=== PATIENT | female | born 1985 | race Caucasian/White ===

== ENCOUNTER 2017-03-09 17:44 | Emergency (ER) | payer OTHER, MEDICAID ==
--- NOTE | 2017-03-09 18:43 | Emergency Department Record ---
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 She has a history of alcohol abuse and similar actions in the past going back many years. She has been mostly sober for several months with a few set backs of drinking. She states stress tonight at home prompted her to drink. She states she currently feels asymptomatic. She denies any thoughts of hurting herself. She denies that this was a suicidal gesture. 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 Time Since Last Drink: 30 -: Minute(s) Treatments Prior to Arrival: None - Greg Coma Scale Eye Response: (4) Open spontaneously Motor Response: (6) Obeys commands Verbal Response: (5) Oriented Greg Total: 15 - Related Data Home Medications Medication Instructions Recorded Confirmed Last Taken Venlafaxine HCl [Effexor Xr] 150 mg PO DAILY 07/09/16 03/09/17 07/09/16 Clonidine HCl [Clonidine HCl] 0.2 mg PO BID 10/10/16 03/09/17 Unknown Clonidine HCl [Clonidine HCl] 0.3 mg PO QHS 10/10/16 03/09/17 Unknown Diphenhydramine HCl [Benadryl] 50 mg PO QHS 10/10/16 03/09/17 Unknown Buspirone HCl [Buspirone HCl] 15 mg PO BID 03/09/17 03/09/17 Unknown Disulfiram [Disulfiram] 250 mg PO DAILY 03/09/17 03/09/17 Unknown Lamotrigine [Lamotrigine] 100 mg PO TID 03/09/17 03/09/17 Unknown Lorazepam [Lorazepam] 1 mg PO BID 03/09/17 03/09/17 Unknown Ondansetron [Ondansetron Odt] 4 mg PO ASDIR PRN 03/09/17 03/09/17 Unknown Trazodone HCl 150 mg PO DAILY 03/09/17 03/09/17 Unknown Allergies Allergy/AdvReac Type Severity Reaction Status Date / Time dicyclomine HCl [From Bentyl] Allergy HIVES Verified 08/21/16 17:19 Travel Screening - Travel/Exposure Within Last 30 Days Have you traveled within the last 30 days?: No Review of Systems Constitutional: Denies: Chills, Fever, Malaise, Weakness Eyes: Denies: Eye discharge ENT: Denies: Congestion Respiratory: Denies: Cough, Dyspnea, Hemoptysis, Stridor, Wheezes Cardiovascular: Denies: Chest pain, Palpitations, Syncope Endocrine: Denies: Fatigue Gastrointestinal: Denies: Abdominal pain, Diarrhea, Nausea, Vomiting Genitourinary: Denies: Dysuria, Frequency Musculoskeletal: Denies: Arthralgia, Back pain, Myalgia, Neck pain Skin: Denies: Bruising, Change in color, Rash Neurological: Denies: Confusion, Headache, Numbness Psychiatric: Denies: Anxiety Hematological/Lymphatic: Denies: Blood Clots, Easy bleeding, Easy bruising, Swollen glands Past Medical History - SOCIAL HISTORY Smoking Status: Current some day smoker Alcohol Use Comment: hand malted milk mixer - RESPIRATORY Hx Respiratory Disorders: Yes Hx Asthma: Yes - CARDIOVASCULAR Hx Cardio Disorders: No - NEURO Hx Neuro Disorders: No Hx Headaches: Yes (migraines) Hx Seizures: Yes - GI Hx GI Disorders: Yes Hx Reflux: Yes - Hx Genitourinary Disorders: No - ENDOCRINE Hx Endocrine Disorders: No Hx Diabetes: No Hx Thyroid Disease: No - MUSCULOSKELETAL Hx Musculoskeletal Disorders: No - PSYCH Hx Psych Problems: Yes Hx Suicide Attempt: Yes - HEMATOLOGY/ONCOLOGY Hx Hematology/Oncology Disorders: No Family Medical History Any Significant Family History?: Yes Hx HTN: Grandparents Physical Exam - General General Appearance: Alert, Oriented x3, Cooperative, No acute distress Limitations: No limitations - Head Head exam: Atraumatic, Normocephalic, Normal inspection - Eye Eye exam: Normal appearance, PERRL. negative: Conjunctival injection, Scleral icterus - ENT ENT exam: Normal exam, Mucous membranes moist Ear exam: Normal external inspection Nasal Exam: Normal inspection Mouth exam: Normal external inspection Teeth exam: Normal inspection Throat exam: Normal inspection - Neck Neck exam: Normal inspection, Full ROM. negative: Tenderness - Respiratory Respiratory exam: Normal lung sounds bilaterally. negative: Respiratory distress - Cardiovascular Cardiovascular Exam: Regular rate, Normal rhythm, Normal heart sounds - GI/Abdominal GI/Abdominal exam: Soft, Normal bowel sounds. negative: Tenderness - Rectal Rectal exam: Deferred - exam: Deferred - Extremities Extremities exam: Normal inspection, Full ROM, Normal capillary refill. negative: Tenderness - Back Back exam: Reports: Normal inspection, Full ROM. Denies: Muscle spasm, Rash noted, Tenderness - Neurological Neurological exam: Alert, CN II-XII intact, Normal gait, Oriented X3, Reflexes normal. negative: Altered - Psychiatric Psychiatric exam: Normal affect, Normal mood. negative: Agitated, Anxious, Depressed, Flat affect, Homicidal ideation, Suicidal ideation - Skin Skin exam: Dry, Intact, Normal color, Warm Course Vital Signs 03/09/17 17:56 Temperature 98.0 F Pulse Rate 108 H Respiratory 18 Rate Blood Pressure 108/83 Pulse Ox 95 - Reevaluation(s) Reevaluation #1: The patient was seen and examined She is calm and cooperative She does not overtly appear intoxicated She regrets her actions and states it was not an attempt to harm herself 03/09/17 18:40 Reevaluation #2: The labs were reviewed Alcohol was 0.248 Acetaminophen is negative Salicylate is negative AST 197, ALT 167, Alk Phos 147 AG normal at 12 HCO3 normal at 28 CBC no acute changes 03/09/17 19:37 03/09/17 19:39 Reevaluation #3: The patient remains alert, no overt signs of impairment. Her speech and thoughts are clear She maintains she is not suicidal Her sister in law Roxann Campbell is here and agrees she is not suicidal She is also aware of her history and takes responsibility for her and will be with her tonight The patient was again instructed not to drink alcohol or abuse other alcohols. She is to recheck her liver enzymes Sunday03/09/17 19:59 - Consultations Consultation #1: MDM The patient does not clinically appear impaired. She is rational, no confusion, very consistent and straight forward answers. She is not suicidal. She is fully aware of her alcohol abuse and is regretful. She has a sister in law with her tonight Roxann Campbell that agrees to take her and be responsible for her tonight. Linda will stay with her and Roxann is fully aware of her abuse history and ensures there is no alcohol or hand malted milk mixer available. She was instructed to avoid the alcohol and to have her labs rechecked in 2-3 days. Medical Decision Making - Lab Data Result diagrams: 03/09/17 19:10 03/09/17 19:10 Disposition Disposition: Discharge Clinical Impression: Alcohol abuse Disposition: Home, Self-Care Condition: (1) Good Instructions: Abuse of Alcohol (ED) Additional Instructions: Avoid alcohol Return if you have any symptoms or concerns You will need to return or see your doctor in 2-3 days to have your liver enzymes rechecked Forms: Patient Portal Access Time of Disposition: 20:02
[2017-03-09 19:19] LABS: BASO % 0.5 % (0-6); EOS % 0.5 % (0-6); GRAN % 67.1 % (47-80); HEMATOCRIT 41.2 % (35.0-47.0); MEAN CELL VOLUME 94.1 fl (81-97); MEAN CORPUSCULAR HEMOGLOBIN 29.7 pg (27-33); MEAN CORPUSCULAR HGB CONC 31.6 g/dl (32-36); MEAN PLATELET VOLUME 8.8 fl (7.4-10.4); MONO % 4.9 % (0-9); PLATELET COUNT 233 K/uL (130-400); RED BLOOD COUNT 4.38 M/uL (3.80-5.40); RED CELL DISTRIBUTION WIDTH 15.3 % (11.5-14.5); WHITE BLOOD COUNT W/O DIFF 5.7 K/uL (4.2-12.2)
[2017-03-09 19:21] LABS: URINE APPEARANCE CLEAR; URINE BILIRUBIN NEGATIVE (NEGATIVE); URINE BLOOD NEGATIVE (NEGATIVE); URINE COLOR YELLOW; URINE GLUCOSE (UA) NEGATIVE (NEGATIVE); URINE KETONE NEGATIVE (NEGATIVE); URINE LEUKOCYTE ESTERASE NEGATIVE (NEGATIVE); URINE NITRITE NEGATIVE (NEGATIVE); URINE PROTEIN NEGATIVE (NEGATIVE); URINE UROBILINOGEN 0.2 E.U./dL (0.20 - 1.00)
[2017-03-09 19:23] LABS: HCG,QUALITATIVE URINE NEGATIVE (NEGATIVE)
[2017-03-09 19:24] LABS: AMPHETAMINE SCREEN URINE NOT DETECTED; BARBITURATE SCREEN URINE NOT DETECTED; BENZODIAZEPINE SCREEN URINE NOT DETECTED; COCAINE SCREEN URINE NOT DETECTED; METHADONE SCREEN URINE NOT DETECTED; METHAMPHETAMINE SCREEN NOT DETECTED; OPIATE SCREEN URINE NOT DETECTED; OXYCODONE SCREEN URINE NOT DETECTED; PHENCYCLIDINE SCREEN URINE NOT DETECTED; PROPOXYPHENE SCREEN URINE NOT DETECTED; THC SCREEN URINE NOT DETECTED; TRICYCLIC ANTIDEPRESSANT SCRN NOT DETECTED
[2017-03-09 19:31] LABS: ACETAMINOPHEN < 10.0 ug/mL (10.0-30.0); ALB/GLOB RATIO 1.6 (1.1-1.8); ALBUMIN 5.2 gm/dL (3.5-5.0); ALCOHOL 0.248 g/dL (0-0.010); ALKALINE PHOSPHATASE 147 U/L (38-126); ALT/SGPT 167 U/L (9-52); ANION GAP 12.5 (7-16); AST/SGOT 198 U/L (14-36); BILIRUBIN,TOTAL 0.25 mg/dL (0.2-1.3); BLOOD UREA NITROGEN 8 mg/dL (7-17); CARBON DIOXIDE 28.5 mmol/L (22-30); CREATININE 0.5 mg/dL (0.52-1.04); EST GLOMERULAR FILTRATION RATE > 60 ml/min; GLUCOSE,RANDOM 74 mg/dL (70-110); SALICYLATE < 1.0 mg/dL (2.8-20.0); TOTAL PROTEIN 8.4 gm/dL (6.3-8.2)
== END 2017-03-09 20:13 | disposition home or self-care (01) ==
LOC: ER 17:44
DX: F10.20 Alcohol dependence, uncomplicated (principal); T51.0X4A Toxic effect of ethanol, undetermined, initial encounter; R74.8 Abnormal levels of other serum enzymes; Y90.8 Blood alcohol level of 240 mg/100 ml or more
CPT/HCPCS: 99283; 99284; 85025; 80053; 81003; 81025; 80305; G0480 ×3; 80320; 80329

== ENCOUNTER 2017-03-10 05:26 | Emergency (ER) | payer OTHER, MEDICAID ==
[2017-03-10] MEDS ORDERED: 0.9 % SODIUM CHLORIDE 1,000 ML BAG IV ONE (05:43)
--- NOTE | 2017-03-10 05:43 | Emergency Department Record ---
History of Present Illness - General Chief Complaint: Laceration(s) Stated Complaint: NEEDS STICHES Time Seen by Provider: 03/10/17 05:32 Source: Patient, Family Mode of Arrival: Ambulatory Limitations: Altered mental status - History of Present Illness Initial Commments: 31 yo female presents after falling and hitting her head. The patient presents with her brother. 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 The brother states that when she returned from the ER last night she was in her usual state and not altered or impaired. After discussion they elected to take her to her house as opposed to the agreed plan of staying at her brothers. No alcohol or hand slubber machine operator was found so she was left in her home. Linda admits to drinking hand slubber machine operator. She lost her balance and hit her head. Linda also states she took her sleeping pills as well. She admits to taking her Trazedone. The brother is fully aware of her history of abuse of alcohol and hand slubber machine operator on an intermittent bases. He states when sober she is not suicidal. -: Hour(s) Location: Scalp Place: Home Context: Accidental Associated Symptoms: Other (Alcohol abuse) - [place] Coma Scale Eye Response: (4) Open spontaneously Motor Response: (6) Obeys commands Verbal Response: (5) Oriented Greg Total: 15 - Related Data Home Medications Medication Instructions Recorded Confirmed Last Taken Venlafaxine HCl [Effexor Xr] 150 mg PO DAILY 07/09/16 03/10/17 07/09/16 Clonidine HCl [Clonidine HCl] 0.2 mg PO BID 10/10/16 03/10/17 Unknown Clonidine HCl [Clonidine HCl] 0.3 mg PO QHS 10/10/16 03/10/17 Unknown Diphenhydramine HCl [Benadryl] 50 mg PO QHS 10/10/16 03/10/17 Unknown Buspirone HCl [Buspirone HCl] 15 mg PO BID 03/09/17 03/10/17 Unknown Disulfiram [Disulfiram] 250 mg PO DAILY 03/09/17 03/10/17 Unknown Lamotrigine [Lamotrigine] 100 mg PO TID 03/09/17 03/10/17 Unknown Lorazepam [Lorazepam] 1 mg PO BID 03/09/17 03/10/17 Unknown Ondansetron [Ondansetron Odt] 4 mg PO ASDIR PRN 03/09/17 03/10/17 Unknown Trazodone HCl 150 mg PO DAILY 03/09/17 03/10/17 Unknown Allergies Allergy/AdvReac Type Severity Reaction Status Date / Time dicyclomine HCl [From Bentyl] Allergy HIVES Verified 03/10/17 05:28 Review of Systems Constitutional: Reports: Malaise. Denies: Chills, Fever, Weakness Eyes: Denies: Eye discharge, Eye pain, Photophobia ENT: Denies: Congestion, Throat pain Respiratory: Denies: Cough, Dyspnea, Hemoptysis, Stridor, Wheezes Cardiovascular: Denies: Chest pain, Palpitations, Syncope Endocrine: Denies: Fatigue Gastrointestinal: Denies: Abdominal pain, Diarrhea, Nausea, Vomiting Genitourinary: Denies: Dysuria Musculoskeletal: Denies: Arthralgia, Back pain, Myalgia, Neck pain Skin: Reports: Other (laceration). 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 Hx Respiratory Disorders: Yes Hx Asthma: Yes - CARDIOVASCULAR Hx Cardio Disorders: No - NEURO Hx Neuro Disorders: No Hx Headaches: Yes (migraines) Hx Seizures: Yes - GI Hx GI Disorders: Yes Hx Reflux: Yes - Hx Genitourinary Disorders: No - ENDOCRINE Hx Endocrine Disorders: No Hx Diabetes: No Hx Thyroid Disease: No - MUSCULOSKELETAL Hx Musculoskeletal Disorders: No - PSYCH Hx Psych Problems: Yes Hx Suicide Attempt: Yes - HEMATOLOGY/ONCOLOGY Hx Hematology/Oncology Disorders: No Family Medical History Hx HTN: Grandparents Physical Exam - General General Appearance: Alert, Cooperative, No acute distress, Other (she is aware of her name, brother, hospital, surroundings, situation) Limitations: No limitations, Altered mental status - Head Head exam: negative: Atraumatic, Normal inspection Head exam detail: Laceration Image of Face/Head: 1 - 4cm liniear laceration, no bruising - Eye Eye exam: Normal appearance, PERRL. negative: Scleral icterus - ENT ENT exam: Normal exam, Mucous membranes moist Ear exam: Normal external inspection Nasal Exam: Normal inspection Mouth exam: Normal external inspection Teeth exam: Normal inspection Throat exam: Normal inspection - Neck Neck exam: Normal inspection, Full ROM. negative: Tenderness - Respiratory Respiratory exam: Normal lung sounds bilaterally. negative: Respiratory distress, Rhonchi, Stridor, Wheezes - Cardiovascular Cardiovascular Exam: Regular rate, Normal rhythm, Normal heart sounds - GI/Abdominal GI/Abdominal exam: Soft. negative: Tenderness - Rectal Rectal exam: Deferred - exam: Deferred - Extremities Extremities exam: Normal inspection, Full ROM, Normal capillary refill. negative: Tenderness - Back Back exam: Reports: Normal inspection, Full ROM. Denies: CVA tenderness (R), CVA tenderness (L), Muscle spasm, Paraspinal tenderness, Rash noted, Tenderness , Vertebral tenderness - Neurological Neurological exam: Alert, Altered. negative: Abnormal gait (ambulates with slight stagger), Motor sensory deficit - Psychiatric Psychiatric exam: Other (alert, calm,). negative: Agitated, Anxious, Normal affect, Normal mood - Skin Type of lesion: negative: Laceration Course - Reevaluation(s) Reevaluation #1: The patient is cooperative but sleepy She wakes up and answers questions correctly 03/10/17 06:35 Reevaluation #2: alcohol is 0.286 03/10/17 06:45 Reevaluation #3: CT of the head is negative for acute process except soft tissue swelling CT of the cervical spine is negative for acute process, older unhealed C7 transverse process fx (not new or acute). Suggestion of edema of the back (the back is visually normal). The case was signed out to Dr Feldman for further monitoring and re-evaluations. 03/10/17 07:11 - Consultations Consultation #1: Procedure: Scalp Laceration 4cm TLE placed followed by Lidocaine 1% with epi 4ml The skin was prepped with betadine The wound was copiously irrigated with NS Staple were used to close the wound with good wound approximation. Medical Decision Making - Lab Data Result diagrams: 03/10/17 05:55 03/10/17 05:55 Disposition Clinical Impression: Alcohol abuse Alcohol intoxication Qualifiers: Complication of substance-induced condition: uncomplicated Qualified Code(s): F10.120 - Alcohol abuse with intoxication, uncomplicated Scalp laceration Qualifiers: Encounter type: initial encounter Qualified Code(s): S01.01XA - Laceration without foreign body of scalp, initial encounter Forms: Patient Portal Access
[2017-03-10 06:07] LABS: EOS % 0.6 % (0-6); GRAN % 53.6 % (47-80); HEMATOCRIT 34.6 % (35.0-47.0); LYMPH % 34.4 % (16-45); MEAN CELL VOLUME 94.5 fl (81-97); MEAN CORPUSCULAR HGB CONC 31.8 g/dl (32-36); MONO % 10.4 % (0-9); PLATELET COUNT 240 K/uL (130-400); RED BLOOD COUNT 3.66 M/uL (3.80-5.40); RED CELL DISTRIBUTION WIDTH 15.7 % (11.5-14.5); WHITE BLOOD COUNT W/O DIFF 4.9 K/uL (4.2-12.2)
[2017-03-10 06:17] LABS: ANION GAP 11.1 (7-16); BLOOD UREA NITROGEN 9 mg/dL (7-17); CARBON DIOXIDE 26.9 mmol/L (22-30); CREATININE 0.5 mg/dL (0.52-1.04); EST GLOMERULAR FILTRATION RATE > 60 ml/min; GLUCOSE,RANDOM 99 mg/dL (70-110)
[2017-03-10 06:34] LABS: ACETAMINOPHEN < 10.0 ug/mL (10.0-30.0)
[2017-03-10] MEDS ORDERED: MVI, ADULT NO.4 WITH VIT K 10 ML, THIAMINE HCL IV 100 MG in 0.9 % SODIUM CHLORIDE 1000M... IV SCH ×3 (06:45)
[2017-03-10 06:47] LABS: ALCOHOL 0.286 g/dL (0-0.010)
[2017-03-10] MEDS ORDERED: MVI, ADULT NO.4 WITH VIT K 10 ML, THIAMINE HCL IV 100 MG in 0.9 % SODIUM CHLORIDE 1000M... IV STA ×3 (06:48)
--- NOTE | 2017-03-10 09:32 | Emergency Department Record ---
History of Present Illness - General Chief Complaint: Laceration(s) Stated Complaint: NEEDS STICHES Time Seen by Provider: 03/10/17 05:32 Source: Patient, Family Mode of Arrival: Ambulatory Limitations: No limitations, Altered mental status - History of Present Illness Onset/Timin -: Hour(s) Location: Scalp Place: Home Context: Accidental Associated Symptoms: Other (Alcohol abuse) - Greg Coma Scale Eye Response: (4) Open spontaneously Motor Response: (6) Obeys commands Verbal Response: (5) Oriented Greg Total: 15 - Related Data Patient Tetanus UTD (within 5 yrs): Yes Home Medications Medication Instructions Recorded Confirmed Last Taken Venlafaxine HCl [Effexor Xr] 150 mg PO DAILY 07/09/16 03/10/17 07/09/16 Clonidine HCl [Clonidine HCl] 0.2 mg PO BID 10/10/16 03/10/17 Unknown Clonidine HCl [Clonidine HCl] 0.3 mg PO QHS 10/10/16 03/10/17 Unknown Diphenhydramine HCl [Benadryl] 50 mg PO QHS 10/10/16 03/10/17 Unknown Buspirone HCl [Buspirone HCl] 15 mg PO BID 03/09/17 03/10/17 Unknown Disulfiram [Disulfiram] 250 mg PO DAILY 03/09/17 03/10/17 Unknown Lamotrigine [Lamotrigine] 100 mg PO TID 03/09/17 03/10/17 Unknown Lorazepam [Lorazepam] 1 mg PO BID 03/09/17 03/10/17 Unknown Ondansetron [Ondansetron Odt] 4 mg PO ASDIR PRN 03/09/17 03/10/17 Unknown Trazodone HCl 150 mg PO DAILY 03/09/17 03/10/17 Unknown Allergies Allergy/AdvReac Type Severity Reaction Status Date / Time dicyclomine HCl [From Bentyl] Allergy HIVES Verified 03/10/17 05:28 Travel Screening - Travel/Exposure Within Last 30 Days Have you traveled within the last 30 days?: No - Travel Symptoms Symptom Screening: None Review of Systems Constitutional: Reports: Malaise. Denies: Chills, Fever, Weakness Eyes: Denies: Eye discharge, Eye pain, Photophobia ENT: Denies: Congestion, Throat pain Respiratory: Denies: Cough, Dyspnea, Hemoptysis, Stridor, Wheezes Cardiovascular: Denies: Chest pain, Palpitations, Syncope Endocrine: Denies: Fatigue Gastrointestinal: Denies: Abdominal pain, Diarrhea, Nausea, Vomiting Genitourinary: Denies: Dysuria Musculoskeletal: Denies: Arthralgia, Back pain, Myalgia, Neck pain Skin: Reports: Other (laceration). 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 Hx Respiratory Disorders: Yes Hx Asthma: Yes - CARDIOVASCULAR Hx Cardio Disorders: No - NEURO Hx Neuro Disorders: No Hx Headaches: Yes (migraines) Hx Seizures: Yes - GI Hx GI Disorders: Yes Hx Reflux: Yes - Hx Genitourinary Disorders: No - ENDOCRINE Hx Endocrine Disorders: No Hx Diabetes: No Hx Thyroid Disease: No - MUSCULOSKELETAL Hx Musculoskeletal Disorders: No - PSYCH Hx Psych Problems: Yes Hx Suicide Attempt: Yes - HEMATOLOGY/ONCOLOGY Hx Hematology/Oncology Disorders: No Family Medical History Hx HTN: Grandparents Physical Exam - General Limitations: No limitations, Altered mental status Course Vital Signs 03/10/17 03/10/17 03/10/17 05:35 06:45 06:55 Temperature 98.6 F Pulse Rate 108 H Pulse Rate [ 90 90 Historian Dramatic Arts ] Respiratory 16 16 14 Rate Blood Pressure 102/65 Blood Pressure 87/50 [Right Arm] Pulse Ox 95 80 L 99 03/10/17 03/10/17 03/10/17 07:26 08:32 09:16 Temperature Pulse Rate Pulse Rate [ 88 93 H 97 H Historian Dramatic Arts ] Respiratory 16 14 18 Rate Blood Pressure Blood Pressure 87/50 88/53 89/52 [Right Arm] Pulse Ox 99 98 99 - Reevaluation(s) Reevaluation #1: The patient is doing very well at this time. Her care was assumed from Dr. Bernal. Presently the patient is awake and alert. She denies any MARISCAL, neck pain or visual changes. On exam she has no cervical tenderness, and no pain with ROM. We will recheck and alcohol level and observe the patient further. 03/10/17 09:30 Reevaluation #2: The patient is doing very well at this time. She is awake and alert and is ambulating normally with no ataxia or slurred speech. She denies any suicidal ideation and regrets getting intoxicated last night. Her gait is normal and she feels ready for home. The patient's BP is normal with no tachycardia and she is instructed to decrease her ETOH intake and see her PCP and Psychiatrist next week. 03/10/17 10:21 Medical Decision Making - Lab Data Result diagrams: 03/10/17 05:55 03/10/17 05:55 Lab Results 03/10/17 03/10/17 03/10/17 Range/Units 05:55 05:55 05:55 WBC 4.9 (4.2-12.2) K/uL RBC 3.66 L (3.80-5.40) M/uL Hgb 11.0 L (11.6-16.0) gm/dl Hct 34.6 L (35.0-47.0) % MCV 94.5 (81-97) fl MCH 30.0 (27-33) pg MCHC 31.8 L (32-36) g/dl RDW 15.7 H (11.5-14.5) % Plt Count 240 (130-400) K/uL MPV 9.0 (7.4-10.4) fl Gran % 53.6 (47-80) % Lymphocytes % 34.4 (16-45) % Monocytes % 10.4 H (0-9) % Eosinophils % 0.6 (0-6) % Basophils % 1.0 (0-6) % Sodium 144 (136-145) mmol/L Potassium 4.3 (3.5-5.1) mmol/L Chloride 106 (98-107) mmol/L Carbon Dioxide 26.9 (22-30) mmol/L Anion Gap 11.1 (7-16) BUN 9 (7-17) mg/dL Creatinine 0.5 L (0.52-1.04) mg/dL Estimated GFR > 60 ml/min Random Glucose 99 (70-110) mg/dL Calcium 8.4 L (8.5-10.1) mg/dL Salicylates < 1.0 L (2.8-20.0) mg/dL Acetaminophen < 10.0 L (10.0-30.0) ug/mL Ethyl Alcohol 0.286 H (0-0.010) g/dL Disposition Clinical Impression: Alcohol abuse Alcohol intoxication Qualifiers: Complication of substance-induced condition: uncomplicated Qualified Code(s): F10.120 - Alcohol abuse with intoxication, uncomplicated Scalp laceration Qualifiers: Encounter type: initial encounter Qualified Code(s): S01.01XA - Laceration without foreign body of scalp, initial encounter Disposition: Home, Self-Care Condition: (2) Stable Instructions: Laceration (ED) Additional Instructions: Please decrease your alcohol intake and please see your PCP next week for recheck and to have your liver enzymes rechecked. Please have your linette removed in 10 days. Return to the ER for any problems or new issues. Forms: Patient Portal Access Time of Disposition: 10:24
[2017-03-10 09:58] LABS: AMPHETAMINE SCREEN URINE NOT DETECTED; BARBITURATE SCREEN URINE NOT DETECTED; BENZODIAZEPINE SCREEN URINE DETECTED; COCAINE SCREEN URINE NOT DETECTED; METHADONE SCREEN URINE NOT DETECTED; METHAMPHETAMINE SCREEN NOT DETECTED; OPIATE SCREEN URINE NOT DETECTED; OXYCODONE SCREEN URINE NOT DETECTED; PHENCYCLIDINE SCREEN URINE NOT DETECTED; PROPOXYPHENE SCREEN URINE NOT DETECTED; THC SCREEN URINE DETECTED; TRICYCLIC ANTIDEPRESSANT SCRN NOT DETECTED
== END 2017-03-10 11:02 | disposition home or self-care (01) ==
LOC: ER 05:26
DX: S19.9XXA Unspecified injury of neck, initial encounter (principal); S01.01XA Laceration without foreign body of scalp, initial encounter; F10.120 Alcohol abuse with intoxication, uncomplicated; T51.0X4A Toxic effect of ethanol, undetermined, initial encounter; W19.XXXA Unspecified fall, initial encounter; Y92.009 Unspecified place in unspecified non-institutional (private) residence as the place of occurrence of the external cause; Y90.8 Blood alcohol level of 240 mg/100 ml or more; Z79.899 Other long term (current) drug therapy
CPT/HCPCS: 12002 ×2; 99284 ×2; 96365; 96366; 96361; 85025; 80048; 80305; 72125; 70450; G0480 ×3; 80320; 80329; J3411; J7030

== ENCOUNTER 2017-03-29 16:36 | Emergency (ER) | payer OTHER, MEDICAID ==
[2017-03-29] MEDS ORDERED: 0.9 % SODIUM CHLORIDE 1,000 ML BAG IV ONE (17:08)
[2017-03-29 17:21] LABS: BASO % 0.3 % (0-6); EOS % 0.3 % (0-6); GRAN % 69.2 % (47-80); LYMPH % 23.3 % (16-45); MEAN CELL VOLUME 90.9 fl (81-97); MEAN CORPUSCULAR HEMOGLOBIN 28.8 pg (27-33); MEAN CORPUSCULAR HGB CONC 31.7 g/dl (32-36); MEAN PLATELET VOLUME 11.1 fl (7.4-10.4); MONO % 6.9 % (0-9); PLATELET COUNT 101 K/uL (130-400); RED BLOOD COUNT 4.51 M/uL (3.80-5.40); RED CELL DISTRIBUTION WIDTH 15.3 % (11.5-14.5); WHITE BLOOD COUNT W/O DIFF 10.6 K/uL (4.2-12.2)
--- NOTE | 2017-03-29 17:22 | Emergency Department Record ---
History of Present Illness - General Chief Complaint: Alcohol Intoxication Stated Complaint: INTOXICATED Time Seen by Provider: 03/29/17 17:08 Source: Police Mode of Arrival: EMS Limitations: No limitations - History of Present Illness Initial Comments: The patient was brought to the ER by EMS and Police due to being found outside very intoxicated and being combative at home. Per the police the patient was threatening her mother and was saying she was going to kill her by shooting her. The patient denies making those statements. She also denies any pain or any injuries. MD Complaint: Alcohol intoxication Last Drink: Unknown Chronic Alcohol Use: Yes Previous Visits for Alcohol Intoxication?: Yes Recent Trauma: No Associated Symptoms: Denies other symptoms Treatments Prior to Arrival: None - [place] Coma Scale Eye Response: (4) Open spontaneously Motor Response: (6) Obeys commands Verbal Response: (5) Oriented [place] Total: 15 - Related Data Home Medications Medication Instructions Recorded Confirmed Last Taken Venlafaxine HCl [Effexor Xr] 150 mg PO DAILY 07/09/16 03/29/17 07/09/16 Clonidine HCl [Clonidine HCl] 0.2 mg PO BID 10/10/16 03/29/17 Unknown Clonidine HCl [Clonidine HCl] 0.3 mg PO QHS 10/10/16 03/29/17 Unknown Diphenhydramine HCl [Benadryl] 50 mg PO QHS 10/10/16 03/29/17 Unknown Buspirone HCl [Buspirone HCl] 15 mg PO BID 03/09/17 03/29/17 Unknown Disulfiram [Disulfiram] 250 mg PO DAILY 03/09/17 03/29/17 Unknown Lamotrigine [Lamotrigine] 100 mg PO TID 03/09/17 03/29/17 Unknown Lorazepam [Lorazepam] 1 mg PO BID 03/09/17 03/29/17 Unknown Ondansetron [Ondansetron Odt] 4 mg PO ASDIR PRN 03/09/17 03/29/17 Unknown Trazodone HCl 150 mg PO DAILY 03/09/17 03/29/17 Unknown Allergies Allergy/AdvReac Type Severity Reaction Status Date / Time dicyclomine HCl [From Bentyl] Allergy HIVES Verified 03/29/17 16:51 Travel Screening - Travel/Exposure Within Last 30 Days Have you traveled within the last 30 days?: No Review of Systems Constitutional: Denies: Chills, Fever Eyes: Denies: Eye discharge ENT: Denies: Congestion Respiratory: Denies: Cough, Dyspnea Past Medical History - SOCIAL HISTORY Smoking Status: Current some day smoker Alcohol Use: Heavy - RESPIRATORY Hx Respiratory Disorders: Yes Hx Asthma: Yes - CARDIOVASCULAR Hx Cardio Disorders: No - NEURO Hx Neuro Disorders: No Hx Headaches: Yes (migraines) Hx Seizures: Yes - GI Hx GI Disorders: Yes Hx Reflux: Yes - Hx Genitourinary Disorders: No - ENDOCRINE Hx Endocrine Disorders: No Hx Diabetes: No Hx Thyroid Disease: No - MUSCULOSKELETAL Hx Musculoskeletal Disorders: No - PSYCH Hx Psych Problems: Yes Hx Suicide Attempt: Yes - HEMATOLOGY/ONCOLOGY Hx Hematology/Oncology Disorders: No Family Medical History Any Significant Family History?: Yes Hx HTN: Grandparents Physical Exam - General General Appearance: Alert, Cooperative, No acute distress - Head Head exam: Atraumatic, Normocephalic, Normal inspection - Eye Eye exam: Normal appearance, PERRL - Neck Neck exam: Normal inspection, Full ROM. negative: Tenderness - Respiratory Respiratory exam: Normal lung sounds bilaterally. negative: Respiratory distress - Cardiovascular Cardiovascular Exam: Regular rate, Normal rhythm, Normal heart sounds - GI/Abdominal GI/Abdominal exam: Soft, Normal bowel sounds. negative: Tenderness - Neurological Neurological exam: Alert. negative: Motor sensory deficit, Oriented X3 (The patient is oriented to name and place only. ) Course Vital Signs 03/29/17 16:39 Temperature 99.1 F Pulse Rate 132 H Respiratory 18 Rate Blood Pressure 121/75 Pulse Ox 95 - Reevaluation(s) Reevaluation #1: The patient is doing OK at this time. She is awake and talking with no slurred speech. She denies any pain or discomfort. 03/29/17 18:27 Reevaluation #2: The patient is doing well. She denies any issues or problems. Her care will be turned over to Dr. Hollis due to shift change. 03/29/17 18:53 Medical Decision Making - Data Complexity MDM Data: Labs Ordered and/or Reviewed, EKG Ordered and/or Reviewed - Lab Data Result diagrams: 03/29/17 16:30 03/29/17 16:30 - EKG Data -: EKG Interpreted by Me EKG: No Acute Changes, Unchanged From Previous Disposition Forms: Patient Portal Access
[2017-03-29 17:34] LABS: ALBUMIN 4.9 gm/dL (3.5-5.0); ALKALINE PHOSPHATASE 144 U/L (38-126); ALT/SGPT 78 U/L (9-52); ANION GAP 17.2 (7-16); AST/SGOT 275 U/L (14-36); BILIRUBIN,TOTAL 0.64 mg/dL (0.2-1.3); BLOOD UREA NITROGEN 8 mg/dL (7-17); CARBON DIOXIDE 24.8 mmol/L (22-30); CREATININE 0.6 mg/dL (0.52-1.04); EST GLOMERULAR FILTRATION RATE > 60 ml/min; GLUCOSE,RANDOM 96 mg/dL (70-110); TOTAL PROTEIN 7.4 gm/dL (6.3-8.2)
[2017-03-29 17:44] LABS: ACETAMINOPHEN < 10.0 ug/mL (10.0-30.0); ALCOHOL 0.382 g/dL (0-0.010); SALICYLATE < 1.0 mg/dL (2.8-20.0)
[2017-03-29] MEDS ORDERED: 0.9 % SODIUM CHLORIDE 1000ML 1,000 ML IV ONE (19:14)
[2017-03-29 22:21] LABS: AMPHETAMINE SCREEN URINE NOT DETECTED; BARBITURATE SCREEN URINE NOT DETECTED; BENZODIAZEPINE SCREEN URINE NOT DETECTED; COCAINE SCREEN URINE NOT DETECTED; METHADONE SCREEN URINE NOT DETECTED; METHAMPHETAMINE SCREEN NOT DETECTED; OPIATE SCREEN URINE DETECTED; OXYCODONE SCREEN URINE NOT DETECTED; PHENCYCLIDINE SCREEN URINE NOT DETECTED; PROPOXYPHENE SCREEN URINE NOT DETECTED; THC SCREEN URINE DETECTED; TRICYCLIC ANTIDEPRESSANT SCRN NOT DETECTED
[2017-03-29] MEDS ORDERED: DIPHENHYDRAMINE HCL 25 MG CAPSULE PO ONE (22:49)
--- NOTE | 2017-03-30 01:16 | Emergency Department Record ---
History of Present Illness - General Source: Police Mode of Arrival: EMS Limitations: No limitations - History of Present Illness Last Drink: Unknown Chronic Alcohol Use: Yes Previous Visits for Alcohol Intoxication?: Yes Recent Trauma: No Associated Symptoms: Denies other symptoms Treatments Prior to Arrival: None - [place] Coma Scale Eye Response: (4) Open spontaneously Motor Response: (6) Obeys commands Verbal Response: (5) Oriented [place] Total: 15 <Jacinta Hollis - Last Filed: 03/30/17 05:54> <NANETTE KEITH - Last Filed: 03/30/17 10:15> - General Chief Complaint: Alcohol Intoxication Stated Complaint: INTOXICATED Time Seen by Provider: 03/29/17 17:08 - Related Data Home Medications Medication Instructions Recorded Confirmed Last Taken Venlafaxine HCl [Effexor Xr] 150 mg PO DAILY 07/09/16 03/29/17 07/09/16 Clonidine HCl [Clonidine HCl] 0.2 mg PO BID 10/10/16 03/29/17 Unknown Clonidine HCl [Clonidine HCl] 0.3 mg PO QHS 10/10/16 03/29/17 Unknown Diphenhydramine HCl [Benadryl] 50 mg PO QHS 10/10/16 03/29/17 Unknown Buspirone HCl [Buspirone HCl] 15 mg PO BID 03/09/17 03/29/17 Unknown Disulfiram [Disulfiram] 250 mg PO DAILY 03/09/17 03/29/17 Unknown Lamotrigine [Lamotrigine] 100 mg PO TID 03/09/17 03/29/17 Unknown Lorazepam [Lorazepam] 1 mg PO BID 03/09/17 03/29/17 Unknown Ondansetron [Ondansetron Odt] 4 mg PO ASDIR PRN 03/09/17 03/29/17 Unknown Trazodone HCl 150 mg PO DAILY 03/09/17 03/29/17 Unknown Allergies Allergy/AdvReac Type Severity Reaction Status Date / Time dicyclomine HCl [From Bentyl] Allergy HIVES Verified 03/29/17 16:51 Travel Screening - Travel/Exposure Within Last 30 Days Have you traveled within the last 30 days?: No <Jacinta Hollis - Last Filed: 03/30/17 05:54> Review of Systems Constitutional: Denies: Chills, Fever Eyes: Denies: Eye discharge ENT: Denies: Congestion Respiratory: Denies: Cough, Dyspnea <BunnyJacinta L - Last Filed: 03/30/17 05:54> Past Medical History - SOCIAL HISTORY Smoking Status: Current some day smoker Alcohol Use: Heavy - RESPIRATORY Hx Respiratory Disorders: Yes Hx Asthma: Yes - CARDIOVASCULAR Hx Cardio Disorders: No - NEURO Hx Neuro Disorders: No Hx Headaches: Yes (migraines) Hx Seizures: Yes - GI Hx GI Disorders: Yes Hx Reflux: Yes - Hx Genitourinary Disorders: No - ENDOCRINE Hx Endocrine Disorders: No Hx Diabetes: No Hx Thyroid Disease: No - MUSCULOSKELETAL Hx Musculoskeletal Disorders: No - PSYCH Hx Psych Problems: Yes Hx Suicide Attempt: Yes - HEMATOLOGY/ONCOLOGY Hx Hematology/Oncology Disorders: No <Jacinta Hollis - Last Filed: 03/30/17 05:54> Family Medical History Any Significant Family History?: Yes Hx HTN: Grandparents <Jacinta Hollis - Last Filed: 03/30/17 05:54> Physical Exam - General Limitations: No limitations <Jacinta Hollis - Last Filed: 03/30/17 05:54> Course Vital Signs 03/29/17 03/29/17 03/29/17 16:39 18:30 22:45 Temperature 99.1 F Pulse Rate 132 H Pulse Rate [ 100 H 105 H Pulse Ox Probe] Respiratory 18 18 20 Rate Blood Pressure 121/75 Blood Pressure 101/52 133/90 [Left Arm] Pulse Ox 95 97 96 - Reevaluation(s) Reevaluation #1: 03/30/17 01:15 pt has done well all evening. she has been a&ox3, ambulatory, verbalizng and cooperative. she is metabolizing at .03 an hour. Reevaluation #2: 03/30/17 05:56 pt continues to rest pescefully. <Jacinta Hollis - Last Filed: 03/30/17 05:54> Vital Signs 03/29/17 03/29/17 03/29/17 16:39 18:30 22:45 Temperature 99.1 F Pulse Rate 132 H Pulse Rate [ 100 H 105 H Pulse Ox Probe] Respiratory 18 18 20 Rate Blood Pressure 121/75 Blood Pressure 101/52 133/90 [Left Arm] Pulse Ox 95 97 96 03/30/17 03/30/17 02:28 07:36 Temperature 98.3 F Pulse Rate Pulse Rate [ 99 H 95 H Pulse Ox Probe] Respiratory 20 20 Rate Blood Pressure Blood Pressure 127/90 151/97 [Left Arm] Pulse Ox 97 97 - Reevaluation(s) Reevaluation #3: AM signout: 31 yo female on Jihan and CERT The patient has a bed at [facility] No immediate concerns. Patient up to the restroom. Cooperative. Calm. Anticipate transfer around 8-8:30am. 03/30/17 07:10 <NANETTE KEITH - Last Filed: 03/30/17 10:15> Medical Decision Making - Lab Data Result diagrams: 03/29/17 16:30 03/29/17 16:30 Lab Results 03/29/17 03/29/17 03/29/17 Range/Units 16:30 16:30 16:30 WBC 10.6 (4.2-12.2) K/uL RBC 4.51 (3.80-5.40) M/uL Hgb 13.0 (11.6-16.0) gm/dl Hct 41.0 (35.0-47.0) % MCV 90.9 (81-97) fl MCH 28.8 (27-33) pg MCHC 31.7 L (32-36) g/dl RDW 15.3 H (11.5-14.5) % Plt Count 101 L (130-400) K/uL MPV 11.1 H (7.4-10.4) fl Gran % 69.2 (47-80) % Lymphocytes % 23.3 (16-45) % Monocytes % 6.9 (0-9) % Eosinophils % 0.3 (0-6) % Basophils % 0.3 (0-6) % Sodium 145 (136-145) mmol/L Potassium 4.1 (3.5-5.1) mmol/L Chloride 103 (98-107) mmol/L Carbon Dioxide 24.8 (22-30) mmol/L Anion Gap 17.2 H (7-16) BUN 8 (7-17) mg/dL Creatinine 0.6 (0.52-1.04) mg/dL Estimated GFR > 60 ml/min Random Glucose 96 (70-110) mg/dL Calcium 9.1 (8.5-10.1) mg/dL Total Bilirubin 0.64 (0.2-1.3) mg/dL AST 275 H (14-36) U/L ALT 78 H (9-52) U/L Alkaline Phosphatase 144 H (38-126) U/L Total Protein 7.4 (6.3-8.2) gm/dL Albumin 4.9 (3.5-5.0) gm/dL Globulin 2.5 (1.4-4.8) gm/dL Albumin/Globulin Ratio 2.0 H (1.1-1.8) Urine HCG, Qual (NEGATIVE) Salicylates < 1.0 L (2.8-20.0) mg/dL Urine Opiates Screen Ur Oxycodone Screen Urine Methadone Screen Ur Propoxyphene Screen Acetaminophen < 10.0 L (10.0-30.0) ug/mL Ur Barbituates Screen Ur Tricyclics Screen Ur Phencyclidine Scrn Ur Amphetamine Screen U Methamphetamines Scrn U Benzodiazepines Scrn Urine Cocaine Screen Urine Cannabis Screen Ethyl Alcohol 0.382 H (0-0.010) g/dL 03/29/17 03/29/17 03/29/17 Range/Units 22:05 22:05 22:55 WBC (4.2-12.2) K/uL RBC (3.80-5.40) M/uL Hgb (11.6-16.0) gm/dl Hct (35.0-47.0) % MCV (81-97) fl MCH (27-33) pg MCHC (32-36) g/dl RDW (11.5-14.5) % Plt Count (130-400) K/uL MPV (7.4-10.4) fl Gran % (47-80) % Lymphocytes % (16-45) % Monocytes % (0-9) % Eosinophils % (0-6) % Basophils % (0-6) % Sodium (136-145) mmol/L Potassium (3.5-5.1) mmol/L Chloride (98-107) mmol/L Carbon Dioxide (22-30) mmol/L Anion Gap (7-16) BUN (7-17) mg/dL Creatinine (0.52-1.04) mg/dL Estimated GFR ml/min Random Glucose (70-110) mg/dL Calcium (8.5-10.1) mg/dL Total Bilirubin (0.2-1.3) mg/dL AST (14-36) U/L ALT (9-52) U/L Alkaline Phosphatase (38-126) U/L Total Protein (6.3-8.2) gm/dL Albumin (3.5-5.0) gm/dL Globulin (1.4-4.8) gm/dL Albumin/Globulin Ratio (1.1-1.8) Urine HCG, Qual Negative (NEGATIVE) Salicylates (2.8-20.0) mg/dL Urine Opiates Screen Detected Ur Oxycodone Screen Not detected Urine Methadone Screen Not detected Ur Propoxyphene Screen Not detected Acetaminophen (10.0-30.0) ug/mL Ur Barbituates Screen Not detected Ur Tricyclics Screen Not detected Ur Phencyclidine Scrn Not detected Ur Amphetamine Screen Not detected U Methamphetamines Scrn Not detected U Benzodiazepines Scrn Not detected Urine Cocaine Screen Not detected Urine Cannabis Screen Detected Ethyl Alcohol 0.166 H (0-0.010) g/dL <Jacinta Hollis L - Last Filed: 03/30/17 05:54> - Lab Data Result diagrams: 03/29/17 16:30 03/29/17 16:30 Lab Results 03/29/17 03/29/17 03/29/17 Range/Units 16:30 16:30 16:30 WBC 10.6 (4.2-12.2) K/uL RBC 4.51 (3.80-5.40) M/uL Hgb 13.0 (11.6-16.0) gm/dl Hct 41.0 (35.0-47.0) % MCV 90.9 (81-97) fl MCH 28.8 (27-33) pg MCHC 31.7 L (32-36) g/dl RDW 15.3 H (11.5-14.5) % Plt Count 101 L (130-400) K/uL MPV 11.1 H (7.4-10.4) fl Gran % 69.2 (47-80) % Lymphocytes % 23.3 (16-45) % Monocytes % 6.9 (0-9) % Eosinophils % 0.3 (0-6) % Basophils % 0.3 (0-6) % Sodium 145 (136-145) mmol/L Potassium 4.1 (3.5-5.1) mmol/L Chloride 103 (98-107) mmol/L Carbon Dioxide 24.8 (22-30) mmol/L Anion Gap 17.2 H (7-16) BUN 8 (7-17) mg/dL Creatinine 0.6 (0.52-1.04) mg/dL Estimated GFR > 60 ml/min Random Glucose 96 (70-110) mg/dL Calcium 9.1 (8.5-10.1) mg/dL Total Bilirubin 0.64 (0.2-1.3) mg/dL AST 275 H (14-36) U/L ALT 78 H (9-52) U/L Alkaline Phosphatase 144 H (38-126) U/L Total Protein 7.4 (6.3-8.2) gm/dL Albumin 4.9 (3.5-5.0) gm/dL Globulin 2.5 (1.4-4.8) gm/dL Albumin/Globulin Ratio 2.0 H (1.1-1.8) Urine HCG, Qual (NEGATIVE) Salicylates < 1.0 L (2.8-20.0) mg/dL Urine Opiates Screen Ur Oxycodone Screen Urine Methadone Screen Ur Propoxyphene Screen Acetaminophen < 10.0 L (10.0-30.0) ug/mL Ur Barbituates Screen Ur Tricyclics Screen Ur Phencyclidine Scrn Ur Amphetamine Screen U Methamphetamines Scrn U Benzodiazepines Scrn Urine Cocaine Screen Urine Cannabis Screen Ethyl Alcohol 0.382 H (0-0.010) g/dL 03/29/17 03/29/17 03/29/17 Range/Units 22:05 22:05 22:55 WBC (4.2-12.2) K/uL RBC (3.80-5.40) M/uL Hgb (11.6-16.0) gm/dl Hct (35.0-47.0) % MCV (81-97) fl MCH (27-33) pg MCHC (32-36) g/dl RDW (11.5-14.5) % Plt Count (130-400) K/uL MPV (7.4-10.4) fl Gran % (47-80) % Lymphocytes % (16-45) % Monocytes % (0-9) % Eosinophils % (0-6) % Basophils % (0-6) % Sodium (136-145) mmol/L Potassium (3.5-5.1) mmol/L Chloride (98-107) mmol/L Carbon Dioxide (22-30) mmol/L Anion Gap (7-16) BUN (7-17) mg/dL Creatinine (0.52-1.04) mg/dL Estimated GFR ml/min Random Glucose (70-110) mg/dL Calcium (8.5-10.1) mg/dL Total Bilirubin (0.2-1.3) mg/dL AST (14-36) U/L ALT (9-52) U/L Alkaline Phosphatase (38-126) U/L Total Protein (6.3-8.2) gm/dL Albumin (3.5-5.0) gm/dL Globulin (1.4-4.8) gm/dL Albumin/Globulin Ratio (1.1-1.8) Urine HCG, Qual Negative (NEGATIVE) Salicylates (2.8-20.0) mg/dL Urine Opiates Screen Detected Ur Oxycodone Screen Not detected Urine Methadone Screen Not detected Ur Propoxyphene Screen Not detected Acetaminophen (10.0-30.0) ug/mL Ur Barbituates Screen Not detected Ur Tricyclics Screen Not detected Ur Phencyclidine Scrn Not detected Ur Amphetamine Screen Not detected U Methamphetamines Scrn Not detected U Benzodiazepines Scrn Not detected Urine Cocaine Screen Not detected Urine Cannabis Screen Detected Ethyl Alcohol 0.166 H (0-0.010) g/dL <NANETTE KEITH - Last Filed: 03/30/17 10:15> Disposition <Jacinta Hollis - Last Filed: 03/30/17 05:54> Disposition: Transfer Transfer To: [facility] Reason For Transfer: Psychiatric referral Accepting Physician: Joyce Time Discussed w/Accepting Physician: 10:13 Time of Disposition: 10:15 <NANETTE KEITH - Last Filed: 03/30/17 10:15> Clinical Impression: Homicidal ideation Alcohol intoxication Qualifiers: Complication of substance-induced condition: uncomplicated Qualified Code(s): F10.920 - Alcohol use, unspecified with 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
[2017-03-30] MEDS ORDERED: MVI, ADULT NO.4 WITH VIT K 10 ML, THIAMINE HCL IV 100 MG in 0.9 % SODIUM CHLORIDE 1000M... IV SCH ×3 (01:30)
[2017-03-30] MEDS ORDERED: LORAZEPAM 0.5 MG TABLET PO ONE (07:40)
[2017-03-30] MEDS ORDERED: BUSPIRONE 5 MG TABLET PO SCH (10:00)
[2017-03-30] MEDS ORDERED: TRAZODONE 50 MG TABLET PO SCH (22:00)
== END 2017-03-30 10:55 ==
LOC: ER 16:36
DX: F10.229 Alcohol dependence with intoxication, unspecified (principal); T49.0X4A Poisoning by local antifungal, anti-infective and anti-inflammatory drugs, undetermined, initial encounter; Y90.8 Blood alcohol level of 240 mg/100 ml or more; Z79.899 Other long term (current) drug therapy
CPT/HCPCS: 99285 ×2; 96365; 96366; 96361; 85025; 80053; 81025; 80305; 93005; 93010; G0480 ×3; 80320; 80329; J3411; J7030